=== PATIENT | female | born 1960 | race Two or more races ===

== ENCOUNTER 2017-01-24 03:20 | Inpatient (IN) | payer MEDICAID ==
[~2017-01-24] VITALS: Ht 165.1 cm; Wt 73.4 kg
[~2017-01-24 03:20] MED LIST: CLOT1CRE6 TOP; LISI-646 PO; METO25TA5 PO; NITR-52 PO
[2017-01-24 03:46] LABS: Basophils # (auto) 0 uL; DEFINITIVE VIEW TRANSMISSION; Eosinophils # (auto) 0 uL; Lymphocytes # (auto) 0.8 uL; Neutrophils # (auto) 16.3 uL
[2017-01-24 03:55] LABS: Hematocrit 37.1 % (36.0-46.0); Hemoglobin 12.5 g/dL (12.2-16.2); Lymphocytes % (auto) 4.3 % (10.0-50.0); Mean Corpuscular Hemoglobin 27.4 pg (28.0-32.0); Mean Corpuscular Hgb Conc. 33.7 g/dL (32.0-36.0); Mean Corpuscular Volume 81.2 fL (80.0-100.0); Mean Platelet Volume 7.5 fL (7.4-10.4); Monocytes # (auto) 1.1 uL; Monocytes % (auto) 6.2 % (0.0-12.0); Neutrophils % (auto) 89.5 % (37.0-80.0); Platelet Count (auto) 300 10^3/uL (140-450); Red Cell Distribution Width 12.8 % (11.6-16.0); White Blood Cell 18.2 10^3/uL (4.4-10.8)
[2017-01-24] MEDS ORDERED: SODIUM CHLORIDE 0.9% 1,000 ML IV ONE (04:00)
[2017-01-24] MEDS ORDERED: KETOROLAC TROMETH 30 MG/ML 1ML VIAL IV ONE (04:00)
[2017-01-24 04:09] LABS: BUN/Creatinine Ratio 17.9; Bilirubin, Total 0.4 mg/dL (0.2-1.0); Calcium 9.2 mg/dL (8.5-10.1); Potassium 4.2 mmol/L (3.5-5.1); Total Protein 8.5 g/dL (6.4-8.2)
[2017-01-24] MEDS ORDERED: ONDANSETRON HCL 4 MG/2 ML VIAL IV ONE (04:15)
[2017-01-24 04:30] LABS: Urine Bilirubin Negative (Negative); Urine Blood Negative /uL (Negative); Urine Color Yellow (Yellow); Urine Glucose Normal (Normal); Urine Ketone Negative (Negative); Urine Nitrite Negative (Negative); Urine RBC 1 /hpf (0 - 4); Urine Squamous Epithelial Cell FEW /hpf (<5); Urine Urobilinogen Normal (Negative); Urine pH 5.5 (5.0-8.0)
[2017-01-24] MEDS ORDERED: cefTRIAXone 1GM/50ML D5W 50 ML IV ONE (05:15)
[2017-01-24] MEDS ORDERED: LORazepam 2MG/ML-1ML VIAL IV ONE (05:30)
[2017-01-24] MEDS ORDERED: ACETAMINOPHEN 325 MG TAB PO ONE (07:30)
[2017-01-24] MEDS ORDERED: VANCOMYCIN PER PHARMACY 0 MG IV SCH (09:00)
[2017-01-24] MEDS ORDERED: LEVOFLOXACIN 500MG 100 ML IV ONE (09:00)
[2017-01-24] MEDS ORDERED: DOCUSATE SOD 100 MG CAP PO PRN (09:00)
[2017-01-24] MEDS ORDERED: ACETAMINOPHEN 325 MG TAB PO PRN (09:00)
[2017-01-24] MEDS ORDERED: cloNIDine HCL 0.1 MG TAB PO PRN (09:00)
[2017-01-24] MEDS ORDERED: DEXTROSE (50%) 50ML SYRG IV PRN (09:00)
[2017-01-24] MEDS ORDERED: TEMAZEPAM 15 MG CAP PO PRN (09:00)
[2017-01-24] MEDS: SODIUM CHLORIDE 0.9% 1,000 ML IV SCH (09:19)
[2017-01-24] MEDS ORDERED: LISINOPRIL 20 MG TAB PO SCH (10:00)
[2017-01-24] MEDS: CLOTRIMAZOLE 1 % CREAM 15GM TOP SCH ×2 (10:00→22:00)
[2017-01-24] MEDS ORDERED: VANCOMYCIN 1GM/250ML D5W 250 ML IV SCH (11:00)
[2017-01-24] MEDS: InsuLIN REG 1unit/0.01ml Soln (100units/ml) SC SCH ×3 (11:30→22:00)
[2017-01-24] MEDS: ACCU-CHEK COMFORT CURVE STRIP VI SCH ×3 (11:49→22:00)
[2017-01-24] MEDS: FAMOTIDINE 20 MG TAB PO SCH ×2 (12:14→21:48)
[2017-01-24] MEDS: HYDROcodone-ACET 5/325MG TAB PO PRN ×3 (12:14→23:53)
[2017-01-24] MEDS: METOPROLOL TARTRATE 25 MG TAB PO SCH ×2 (12:14→21:48)
[2017-01-24 14:19] VITALS: BP 116/68
[2017-01-24 17:30] VITALS: BP 128/69
[2017-01-24 21:35] VITALS: BP 117/64
[2017-01-25] MEDS: SODIUM CHLORIDE 0.9% 1,000 ML IV SCH (01:30)
[2017-01-25 05:59] VITALS: BP 119/66
[2017-01-25] MEDS: HYDROcodone-ACET 5/325MG TAB PO PRN (06:05)
[2017-01-25] MEDS: ACCU-CHEK COMFORT CURVE STRIP VI SCH ×2 (06:06→11:30)
[2017-01-25] MEDS: InsuLIN REG 1unit/0.01ml Soln (100units/ml) SC SCH ×2 (06:06→11:30)
[2017-01-25 06:31] LABS: Basophils # (auto) 0 uL; Basophils % (auto) 0.3 % (0.0-2.0); Eosinophils # (auto) 0 uL; Eosinophils % (auto) 0.3 % (0.0-7.0); Hematocrit 30.9 % (36.0-46.0); Hemoglobin 10.3 g/dL (12.2-16.2); Lymphocytes # (auto) 1.1 uL; Lymphocytes % (auto) 11.7 % (10.0-50.0); Mean Corpuscular Hgb Conc. 33.5 g/dL (32.0-36.0); Mean Corpuscular Volume 80.6 fL (80.0-100.0); Mean Platelet Volume 7.4 fL (7.4-10.4); Monocytes # (auto) 0.7 uL; Monocytes % (auto) 6.9 % (0.0-12.0); Neutrophils # (auto) 7.7 uL; Neutrophils % (auto) 80.8 % (37.0-80.0); Platelet Count (auto) 267 10^3/uL (140-450); Red Cell Distribution Width 13.1 % (11.6-16.0); White Blood Cell 9.6 10^3/uL (4.4-10.8)
[2017-01-25 06:49] LABS: BUN/Creatinine Ratio 13.6; Calcium 8.1 mg/dL (8.5-10.1); Potassium 4.1 mmol/L (3.5-5.1)
[2017-01-25 06:52] LABS: Bilirubin, Total 0.2 mg/dL (0.2-1.0); Total Protein 6.7 g/dL (6.4-8.2)
[2017-01-25 08:00] VITALS: BP 138/82
[2017-01-25] MEDS ORDERED: LEVOFLOXACIN 250MG 50 ML IV SCH (09:00)
[2017-01-25] MEDS: ONDANSETRON HCL 4 MG/2 ML VIAL IV PRN ×2 (09:44→15:06)
[2017-01-25] MEDS: MORPHINE SULF INJ 2 MG/ML SYRINGE 1ML IV PRN ×2 (09:46→15:06)
[2017-01-25] MEDS: FAMOTIDINE 20 MG TAB PO SCH (09:52)
[2017-01-25] MEDS ORDERED: MULTIPLE VITAMIN TAB PO SCH (10:00)
[2017-01-25 13:00] VITALS: BP 122/69
== END 2017-01-25 16:00 | disposition home or self-care (01) | DRG 720 ==
LOC: ER 03:20 → OVERFLOW 03:21 → TELE-E-ADS 10:14 → CENTRAL 14:13
PROVIDERS: ADMIT Internal Medicine; ATTEND Internal Medicine
DX: A41.9 Sepsis, unspecified organism (principal); E11.21 Type 2 diabetes mellitus with diabetic nephropathy; N18.3 Chronic kidney disease, stage 3 (moderate); F41.9 Anxiety disorder, unspecified; E11.22 Type 2 diabetes mellitus with diabetic chronic kidney disease; I12.9 Hypertensive chronic kidney disease with stage 1 through stage 4 chronic kidney disease, or unspecified chronic kidney disease; N10 Acute pyelonephritis; Z87.440 Personal history of urinary (tract) infections; Z90.710 Acquired absence of both cervix and uterus; Z88.0 Allergy status to penicillin
CPT/HCPCS: 36415; 74176; 76775; 80053; 81001; 82150; 82962; 83036; 83605; 83690; 85025; 87040; 96361; 96365; 96367; 96375; J0696; J1815; J1885; J1956; J2405

== ENCOUNTER 2018-12-29 14:48 | Emergency (ER) | payer MEDICAID ==
[~2018-12-29] VITALS: Ht 162.6 cm; Wt 68.9 kg
[~2018-12-29 14:48] MED LIST changes: -CLOT1CRE6 TOP; -NITR-52 PO
[2018-12-29 15:28] LABS: Basophils # (auto) 0 uL; Basophils % (auto) 0.3 % (0.0-2.0); Eosinophils # (auto) 0 uL; Lymphocytes # (auto) 0.9 uL; Lymphocytes % (auto) 11.5 % (10.0-50.0); Mean Corpuscular Hemoglobin 27.3 pg (28.0-32.0); Mean Corpuscular Hgb Conc. 33.4 g/dL (32.0-36.0); Mean Corpuscular Volume 81.9 fL (80.0-100.0); Monocytes # (auto) 0.3 uL; Monocytes % (auto) 3.8 % (0.0-12.0); Neutrophils # (auto) 6.7 uL; Neutrophils % (auto) 84.4 % (37.0-80.0); Platelet Count (auto) 296 10^3/uL (140-450); Red Cell Distribution Width 13.2 % (11.8-14.3); White Blood Cell 7.9 10^3/uL (4.4-10.8)
[2018-12-29] MEDS ORDERED: SODIUM CHLORIDE 0.9% 1,000 ML IVB ONE (15:34)
[2018-12-29] MEDS ORDERED: LORazepam 2MG/ML-1ML VIAL IV ONE (15:45)
[2018-12-29] MEDS ORDERED: PROMETHAZINE HCL 25 MG/ML 1ML IV ONE (15:45)
[2018-12-29 15:50] LABS: Albumin 4.4 g/dL (3.4-5.0); BUN/Creatinine Ratio 19.3; Calcium 9.4 mg/dL (8.5-10.1); Potassium 3.9 mmol/L (3.5-5.1)
[2018-12-29 15:53] LABS: Bilirubin, Total 0.4 mg/dL (0.2-1.0); Total Protein 8.4 g/dL (6.4-8.2)
[2018-12-29 18:25] LABS: Urine WBC None Seen /hpf (0 - 5)
[2018-12-29 19:06] LABS: Urine Bacteria NONE SEEN /hpf (None Seen); Urine Blood Negative /uL (Negative); Urine Specific Gravity 1.004 (1.001-1.035)
[2018-12-29 19:08] LABS: Alcohol, Urine < 3.0 mg/dL (0-5); Amphetamine Screen, Urine NEGATIVE (NEGATIVE); Barbiturate Scree,Urine NEGATIVE (NEGATIVE); Benzodiazephine Screen, Urine NEGATIVE (NEGATIVE); Cannabinoid Screen, Urine NEGATIVE (NEGATIVE); Cocaine Screen, Urine NEGATIVE (NEGATIVE); Opiate Scree,Urine NEGATIVE (NEGATIVE); Phencyclidine Screen, Urine NEGATIVE (NEGATIVE)
[2018-12-29 20:54] VITALS: BP 118/66
== END 2018-12-29 21:19 | disposition home or self-care (01) ==
LOC: ER 14:51
DX: K59.01 Slow transit constipation (principal); R51 Headache; I12.9 Hypertensive chronic kidney disease with stage 1 through stage 4 chronic kidney disease, or unspecified chronic kidney disease; N18.3 Chronic kidney disease, stage 3 (moderate); Z88.0 Allergy status to penicillin; Z79.899 Other long term (current) drug therapy; Z90.710 Acquired absence of both cervix and uterus
CPT/HCPCS: 36415; 70450; 71046; 74176; 80053; 80307; 81001; 83690; 83735; 84443; 85025; 93005; 94761; 96361; 96374; 96375; 99284; J2060; J2550; J7030